=== PATIENT | female | born 1970 | race African-American/Black ===

== ENCOUNTER 2020-11-25 10:55 | Outpatient (CLI) | payer OTHER ==
[2020-11-25 18:20] LABS: SARS-CoV-2 PCR by NAA Not Detected (NotDetected)
== END 2020-11-25 10:56 | disposition home or self-care (01) ==
LOC: CSHLAB 10:55
PROVIDERS: ATTEND Surgery
DX: Z20.822 Contact with and (suspected) exposure to COVID-19 (principal); L72.0 Epidermal cyst
CPT/HCPCS: 87635; U0003; U0005

== ENCOUNTER 2020-11-28 09:47 | Day surgery (SDC) | payer OTHER ==
[2020-11-27 12:59] VITALS: BMI 27.3
[2020-11-28] MEDS ORDERED: Lidocaine 1% MPF 2 ML VIAL ONE (09:48)
[2020-11-28] MEDS ORDERED: Bupivacaine PF 0.5% 30 ML VIAL ONE (11:02)
[2020-11-28] MEDS ORDERED: EPINEPHrine 1 MG/ML AMP ONE (11:02)
[2020-11-28] MEDS ORDERED: CEFAZOLIN 1 GM VIAL ONE ×3 (11:12→11:13)
[2020-11-28] MEDS ORDERED: Fentanyl 100 MCG/2 ML VIAL ONE (11:23)
[2020-11-28] MEDS ORDERED: PROPOFOL 20 ML ONE (11:23)
[2020-11-28] MEDS ORDERED: Ketorolac Tromethamine 30 MG/ML VIAL ONE (11:24)
[2020-11-28] MEDS ORDERED: Dexamethasone 4 mg/ml Vial ONE (11:24)
[2020-11-28] MEDS ORDERED: Glycopyrrolate 0.2 MG/ML 5 ML SYRINGE ONE (11:24)
[2020-11-28] MEDS ORDERED: Ondansetron PF 4 MG/2 ML Vial ONE (11:24)
[2020-11-28] MEDS ORDERED: Rocuronium Bromide 10 MG/ML (10ML VIAL) ONE (11:24)
[2020-11-28] MEDS ORDERED: Midazolam HCl 2 mg/2 ml Vial ONE (11:24)
[2020-11-28] MEDS ORDERED: Lidocaine 1% PF 5 ML VIAL ONE (11:24)
[2020-11-28] MEDS ORDERED: Morphine 4 MG/ML VIAL ONE ×2 (12:58→13:10)
[2020-11-28] MEDS ORDERED: HYDROcodone/Acetaminophen 5/325 mg Tablet PO PRN (14:04)
== END 2020-11-28 14:05 | disposition home or self-care (01) ==
LOC: CSHSDC 09:47 → EEVIPCON 09:47 → CSHSDC 14:05
PROVIDERS: ATTEND Surgery
DX: L72.0 Epidermal cyst (principal); I10 Essential (primary) hypertension
CPT/HCPCS: 88304; J0171; J0690; J1100; J1885; J2250; J2270; J2405; J2704; J3010; S0020

== ENCOUNTER 2021-07-13 07:57 | Emergency (ER) | payer OTHER ==
[2021-07-13] MEDS ORDERED: Acetaminophen 500 MG TAB ONE (09:41)
[2021-07-13 10:04] LABS: #Eosinphils 0.2 10x3/uL (0.0-0.5); #Monocytes 0.6 10x3/uL (0.0-1.1); #Neutrophils 5.2 10x3/uL (1.5-8.4); %Basophils 0.4 % (0.0-2.0); %Eosinophils 3.5 % (0.0-6.0); %Lymphocytes 12.2 % (18.0-47.0); %Monocytes 8.6 % (0.0-10.0); Hemoglobin 13.5 g/dL (12.0-15.5); Mean Corpuscular HGB CONC 32.3 g/dL (32.0-36.0); Mean Corpuscular Hemoglobin 27.4 pg (27.0-33.0); Mean Platelet Volume 9.3 fl (7.4-10.4); Platelet Count 384 10x3/uL (150-450); RBC Distribution Width 13.8 % (11.5-14.5); Red Blood Cell (RBC) Count 4.92 10x6/uL (3.90-5.03)
[2021-07-13 10:23] LABS: ALT (SGPT) 27 U/L (8-55); AST (SGOT) 19 U/L (5-34); Albumin 4.1 g/dL (3.5-5.0); Alkaline Phosphatase 53 U/L (40-110); Anion Gap 13 mmol/L (10-20); BUN (Urea Nitrogen) 5 mg/dL (9.8-20.1); Bilirubin, Total 0.2 mg/dL (0.2-1.2); Calc. Creatinine Clearance 0 mL/min (70-130); Carbon Dioxide 26 mmol/L (22-29); Chloride 106 mmol/L (98-107); Globulin 3.1 g/dL (2.4-3.5); Glucose 79 mg/dL (70-105); Protein, Total 7.2 g/dL (6.0-8.3); Sodium 141 mmol/L (136-145)
== END 2021-07-13 10:51 | disposition home or self-care (01) ==
LOC: CSHERS 07:57
DX: I33.9 Acute and subacute endocarditis, unspecified (principal); Z71.6 Tobacco abuse counseling; F17.200 Nicotine dependence, unspecified, uncomplicated
CPT/HCPCS: 71045; 80053; 85025; 94640; J7620

== ENCOUNTER 2021-07-19 13:22 | Emergency (ER) | payer OTHER | END 2021-07-19 15:04 | disposition home or self-care (01) | LOC: CSHERS 13:22 | DX: J20.9 Acute bronchitis, unspecified (principal); F17.200 Nicotine dependence, unspecified, uncomplicated | CPT/HCPCS: 71045 ==

== ENCOUNTER 2022-08-04 11:50 | Emergency (ER) | payer OTHER ==
[2022-08-04] MEDS ORDERED: Ketorolac Tromethamine 30 MG/ML VIAL ONE (12:44)
== END 2022-08-04 14:00 | disposition home or self-care (01) ==
LOC: CSHERS 11:50
DX: M25.551 Pain in right hip (principal); W01.0XXA Fall on same level from slipping, tripping and stumbling without subsequent striking against object, initial encounter
CPT/HCPCS: 96372; J1885